=== PATIENT | male | born 1985 | race Caucasian/White ===

== ENCOUNTER 2021-10-28 16:57 | Emergency (ER) | payer OTHER, SELFPAY ==
--- NOTE | ~2021-10-28 | CT_ITS ---
EXAMINATION: CT abdomen pelvis w con INDICATION: Abdominal pain and nausea TECHNIQUE: Computed tomographic images of the abdomen and pelvis were obtained after the administrati on of 100 cc of Omnipaque 350 intravenous contrast. The dose-length product (DLP) was 515.12 mGy-cm. Automated exposure control and iterative reconstruction technique were employed. COMPARISON: None available FINDINGS: Minimal dependent atelectasis is present in the lung bases. The heart size is normal. The l iver, spleen, pancreas, gallbladder, and adrenal glands are normal. The kidneys are unremarkable. No pathologically enlarged abdominal or pelvic lymph nodes are identified. There is no free intraperiton eal gas or evidence of bowel obstruction. The appendix is normal. There is a tiny umbilical hernia c ontaining fat. IMPRESSION: 1. No CT correlate for the patient's symptoms. Reviewed, dictated and finalized at location F. HROOM MONITOR
[2021-10-28 17:52] VITALS: BP 169/86; PULSE 76; RESP 16; TEMP 36.2; O2SAT 100
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
[2021-10-28 20:00] LABS: Basophils Absolute Auto 0.1 K/mm3 (0.0-0.1); Basophils Percent Auto 0.6 % (0.2-1.2); Eosinophils Absolute Auto 0.1 K/mm3 (0-0.3); Hematocrit 45.6 % (42.0-52.0); Hemoglobin 16.1 g/dL (14.0-18.0); Immature Granulocyte Absolute 0.02 K/mm3 (0.00-0.031); Immature Granulocyte Percent A 0.3 % (0-0.5); Lymphocytes Absolute Auto 2.35 K/mm3 (0.9-3.2); Lymphocytes Percent Auto 29.7 % (18.3-44.2); Mean Corpuscular HGB Conc 35.3 g/dl (32-36); Mean Corpuscular Hemoglobin 31.3 pg (26-34); Mean Corpuscular Volume 88.5 fl (80-100); Mean Platelet Volume 8.8 fl (7.4-10.4); Monocytes Absolute Auto 0.5 K/mm3 (0.1-0.6); Monocytes Percent Auto 5.9 % (2.6-8.5); Neutrophils Absolute Auto 4.9 K/mm3 (1.3-6.7); Neutrophils Percent Auto 62.5 % (45.5-73.1); Platelet Count Result 197 k/mm3 (150-375); Red Blood Count 5.15 M/mm3 (4.6-6.20); Red Cell Distribution Width 12.5 % (11.5-14.5); White Blood Count 7.9 K/mm3 (4.5-10.0)
[2021-10-28] MEDS: SODIUM CHLORIDE 0.9% IV 1,000 ML 999 ML IV CONT (20:00)
[2021-10-28] MEDS: Please add drug allergy info to patient profile. 1 EACH XX (20:01)
[2021-10-28 20:03] LABS: Add Urine Microscopic? YES; Appearance Urine Clear (Clear); Bilirubin Urine Negative (Negative); Blood Urine Negative (Negative); Color Urine Yellow (Yellow); Glucose Urine UA Negative (Negative); Ketones Urine Trace mg/dL (Negative); Leukocyte Esterase Ur Negative LEU/UL (Negative); Mucus Urine Rare /lpf; Nitrate Urine Negative (Negative); Protein Urine Negative (Negative); RBC Urine 0-2 /hpf (0-2); Specific Grav Ur 1.013 (1.001-1.035); Urobilinogen Urine Negative mg/dL (<2.0); WBC Urine 0-3 /hpf
[2021-10-28 20:11] LABS: Alanine Aminotransferase 38 U/L (4-50); Albumin Level 4.7 g/dL (3.5-5.1); Alkaline Phosphatase 56 U/L (38-126); Anion Gap 13 mmol/L (8-16); Aspartate Amino Transferase 32 U/L (17-59); Bilirubin,Total 3.7 mg/dL (0.2-1.3); Blood Urea Nitrogen 10 mg/dL (9-20); Calcium 9.7 mg/dL (8.4-10.2); Carbon Dioxide 25 mmol/L (22-30); Chloride 102 mmol/L (98-107); Estimated CRCL calculation 106 ml/min; Estimated Glomerular Filt Rate > 60; Glucose 96 mg/dL (65-110); Lipase 50 U/L (23-300); Potassium 3.6 mmol/L (3.4-5.0); Sodium 140 mmol/L (137-145)
[2021-10-28 22:22] VITALS: BP 141/91; PULSE 90; RESP 18; O2SAT 97
== END 2021-10-28 22:24 | disposition home or self-care (01) ==
PROVIDERS: Emergency Provider Emergency Medicine
DX: R10.13 Epigastric pain (principal); E80.6 Other disorders of bilirubin metabolism
CPT/HCPCS: 36415; 74177; 80053; 81001; 83690; 85025; 96360; 96361; 99284; J7030; Q9967

== ENCOUNTER 2021-11-19 14:24 | Outpatient (CLI) | payer OTHER, SELFPAY ==
[2021-11-19 14:56] LABS: Alanine Aminotransferase 25 U/L (4-50); Albumin Level 4.8 g/dL (3.5-5.1); Alkaline Phosphatase 48 U/L (38-126); Aspartate Amino Transferase 25 U/L (17-59); Bilirubin Indirect 2.2 mg/dL (0-1.1); Bilirubin,Total 2.2 mg/dL (0.2-1.3)
== END 2021-11-19 14:25 | disposition home or self-care (01) ==
LOC: ANHLAB 14:26
PROVIDERS: Visit Provider Internal Medicine Gastroenterology
DX: E80.6 Other disorders of bilirubin metabolism (principal); R10.10 Upper abdominal pain, unspecified
CPT/HCPCS: 36415; 80076

== ENCOUNTER 2021-12-07 00:27 | Day surgery (SDC) | payer OTHER, SELFPAY ==
[2021-11-24 13:48] VITALS: BMI 31.3
--- NOTE | 2021-12-07 07:33 | P.PNAN_ITS ---
Anes - Initial Pre Proc Eval Procedure: Operation Date: 12/07/21 08:30 Proposed Procedures p Esophagogastroduodenoscopy - Pierre Green MD Date/Time: 12/07/21 07:33 Surgeon: Pierre Green MD Pre Op Diagnosis: epigastric pain Patient Data Age: 36 Gender: M Height: 1.78 m Weight: 99 kg Allergies Allergy/AdvReac Type Severity Reaction Status Date / Time No Known Allergies Allergy Verified 12/07/21 07:45 Home Medications Medication Instructions Recorded Confirmed Type pantoprazole [Protonix] 40 mg PO DAILY #30 ea 10/28/21 12/07/21 Rx Patient hx anesthesia problems: none Family hx anesthesia problems: none Results Review: All pre-operative results and documents have been reviewed as part of the pre-operative evaluation. [facility] Past Medical History Medical History (Updated 12/07/21 @ 07:33 by Thien Dinh DO) Dyspepsia GERD (gastroesophageal reflux disease) Social History Social History (Updated 11/19/21 @ 13:42 by Amber Bradley [facility]) Smoking status: Current every day smoker Tobacco type: cigarettes Alcohol intake: never Alcohol use details: social Substance use: never Substance use type: does not use Living arrangements: with family Spiritual care concerns: No Anes - Eval Final PreProcedure Day of Procedure 12/07/21 07:33 Patient weight: obese Heart: regular rate and rhythm Lungs: clear to auscultation and normal air movement Airway: Mallampati scale class II Neurological: alert and oriented Last oral intake: >/= 8 hours ASA classification: II Emergent: no Anesthetic plan: proceed Anesthesia type and monitoring: general GIVS and standard monitoring Results Review: All pre-operative results and documents have been reviewed as part of the pre-operative evaluation. Informed Consent: The patient's anesthetic plan and its attendant risks and benefits were discussed with the patient/family/POA. Questions were solicited and answers provided to the satisfaction of the patient/family/POA.
[2021-12-07 07:46] VITALS: BP 133/84; PULSE 76; RESP 18; TEMP 36.6; O2SAT 100
[2021-12-07] MEDS: LACTATED RINGERS 1,000 ML 150 ML IV CONT (07:48)
--- NOTE | 2021-12-07 08:22 | WPDHPUPDATE1 ---
History and Physical Update Update Date/Time: 12/07/21 08:22 History and Physical has been reviewed, including an updated exam of the patient. There are NO changes in the patient's condition. Risks, benefits, and alternatives have been discussed and questions answered. Patient agrees to proceed with procedure.
[2021-12-07] MEDS: BENZOCAINE (*SP) 60 ML SPRAY CAN (HURRICAINE) 1 SPRAY MUCOUS MEM (08:23)
[2021-12-07 08:34] VITALS: BP 134/82; PULSE 83; RESP 21; O2SAT 98
[2021-12-07 08:44] VITALS: BP 130/104; PULSE 83; RESP 20; O2SAT 98
[2021-12-07 08:54] VITALS: BP 137/86; PULSE 73; RESP 18; O2SAT 100
== END 2021-12-07 09:15 | disposition home or self-care (01) ==
PROVIDERS: Visit Provider Internal Medicine Gastroenterology
PROC: 0DJ08ZZ Inspection of Upper Intestinal Tract, Via Natural or Artificial Opening Endoscopic (ICD-10-PCS; CPT 43235; principal; 2021-12-07 08:30)
DX: K29.70 Gastritis, unspecified, without bleeding (principal); F17.210 Nicotine dependence, cigarettes, uncomplicated; E66.9 Obesity, unspecified; Z68.31 Body mass index [BMI] 31.0-31.9, adult
CPT/HCPCS: 43239; 88305; J7120

== ENCOUNTER 2022-07-22 08:12 | Outpatient (CLI) | payer OTHER, SELFPAY ==
[2022-07-22 18:56] LABS: Basophils Absolute Auto 0.1 K/mm3 (0.0-0.1); Basophils Percent Auto 0.9 % (0.2-1.2); Eosinophils Absolute Auto 0.2 K/mm3 (0-0.3); Eosinophils Percent Auto 3.5 % (0-4.4); Hematocrit 46.2 % (42.0-52.0); Hemoglobin 15.9 g/dL (14.0-18.0); Immature Granulocyte Absolute 0.01 K/mm3 (0.00-0.031); Immature Granulocyte Percent A 0.2 % (0-0.5); Lymphocytes Absolute Auto 1.96 K/mm3 (0.9-3.2); Mean Corpuscular HGB Conc 34.4 g/dl (32-36); Mean Corpuscular Hemoglobin 31.1 pg (26-34); Mean Corpuscular Volume 90.4 fl (80-100); Mean Platelet Volume 9.5 fl (7.4-10.4); Monocytes Absolute Auto 0.4 K/mm3 (0.1-0.6); Monocytes Percent Auto 6.8 % (2.6-8.5); Neutrophils Absolute Auto 3.6 K/mm3 (1.3-6.7); Neutrophils Percent Auto 57.6 % (45.5-73.1); Platelet Count Result 237 k/mm3 (150-375); Red Blood Count 5.11 M/mm3 (4.6-6.20); Red Cell Distribution Width 13.3 % (11.5-14.5); White Blood Count 6.3 K/mm3 (4.5-10.0)
[2022-07-22 19:57] LABS: Alanine Aminotransferase 34 U/L (6-50); Albumin Level 4.1 g/dL (3.5-5.1); Alkaline Phosphatase 49 U/L (38-126); Anion Gap 9 mmol/L (8-16); Aspartate Amino Transferase 41 U/L (17-59); Bilirubin,Total 1.5 mg/dL (0.2-1.3); Blood Urea Nitrogen 13 mg/dL (9-20); Calcium 8.9 mg/dL (8.4-10.2); Carbon Dioxide 29 mmol/L (22-30); Chloride 101 mmol/L (98-107); Cholesterol 183 mg/dL (0-200); Estimated Glomerular Filt Rate > 60; Glucose 105 mg/dL (65-110); HDL Direct 43 mg/dL; Sodium 139 mmol/L (137-145); Triglycerides 107 mg/dL (<150)
[2022-07-22 20:07] LABS: LDL Cholesterol Direct 120 mg/dL
== END 2022-07-22 08:13 | disposition home or self-care (01) ==
PROVIDERS: PCP Internal Medicine; Visit Provider Nurse Practitioner
DX: Z13.220 Encounter for screening for lipoid disorders (principal); F32.A Depression, unspecified; F41.9 Anxiety disorder, unspecified
CPT/HCPCS: 36415; 80053; 80061; 84443; 85025

== ENCOUNTER 2022-08-30 11:47 | Outpatient (CLI) | payer OTHER, SELFPAY ==
[2022-08-30 18:58] LABS: Hematocrit 43.6 % (42.0-52.0); Mean Corpuscular HGB Conc 34.4 g/dl (32-36); Mean Corpuscular Hemoglobin 31.9 pg (26-34); Mean Corpuscular Volume 92.8 fl (80-100); Mean Platelet Volume 9.8 fl (7.4-10.4); Platelet Count Result 213 k/mm3 (150-375); Red Cell Distribution Width 13.3 % (11.5-14.5); White Blood Count 7.1 K/mm3 (4.5-10.0)
[2022-08-30 19:15] LABS: Appearance Urine Clear (Clear); Bilirubin Urine Negative (Negative); Blood Urine Trace-intact (Negative); Color Urine Yellow (Yellow); Glucose Urine UA Negative (Negative); Ketones Urine Negative (Negative); Leukocyte Esterase Ur Negative LEU/UL (NEGATIVE); Nitrate Urine Negative (Negative); Protein Urine Negative (Negative); Specific Grav Ur 1.015 (1.001-1.035); Urobilinogen Urine 0.2 mg/dL (<2.0)
[2022-08-30 19:17] LABS: RBC Urine 0-2 /hpf (0-2); Squamous Epithelial Cell Urine Rare /hpf (Few)
[2022-08-30 19:24] LABS: Add Urine Microscopic? YES
[2022-08-30 19:29] LABS: Anion Gap 13 mmol/L (8-16); Blood Urea Nitrogen 14 mg/dL (9-20); Carbon Dioxide 24 mmol/L (22-30); Chloride 103 mmol/L (98-107); Estimated Glomerular Filt Rate > 60; Glucose 103 mg/dL (65-110); Potassium 3.6 mmol/L (3.4-5.0); Sodium 140 mmol/L (137-145)
== END 2022-08-30 11:48 | disposition home or self-care (01) ==
LOC: ANHGOSHLAB 11:48
PROVIDERS: PCP Internal Medicine; Visit Provider Internal Medicine
DX: R30.0 Dysuria (principal); R31.9 Hematuria, unspecified
CPT/HCPCS: 36415; 80048; 81001; 85027; 87086

== ENCOUNTER 2023-08-01 14:51 | Outpatient (CLI) | payer OTHER, SELFPAY ==
[2023-08-01 19:32] LABS: Basophils Absolute Auto 0.1 K/mm3 (0.0-0.1); Basophils Percent Auto 0.8 % (0.2-1.2); Eosinophils Absolute Auto 0.3 K/mm3 (0-0.3); Eosinophils Percent Auto 3.7 % (0-4.4); Hematocrit 43.2 % (42.0-52.0); Immature Granulocyte Absolute 0.01 K/mm3 (0.00-0.031); Immature Granulocyte Percent A 0.1 % (0-0.5); Lymphocytes Absolute Auto 2.12 K/mm3 (0.9-3.2); Lymphocytes Percent Auto 29.9 % (18.3-44.2); Mean Corpuscular HGB Conc 34.7 g/dl (32-36); Mean Corpuscular Hemoglobin 31.1 pg (26-34); Mean Corpuscular Volume 89.6 fl (80-100); Mean Platelet Volume 9.7 fl (7.4-10.4); Monocytes Absolute Auto 0.5 K/mm3 (0.1-0.6); Monocytes Percent Auto 6.3 % (2.6-8.5); Neutrophils Absolute Auto 4.2 K/mm3 (1.3-6.7); Neutrophils Percent Auto 59.2 % (45.5-73.1); Platelet Count Result 226 k/mm3 (150-375); Red Blood Count 4.82 M/mm3 (4.6-6.20); Red Cell Distribution Width 12.5 % (11.5-14.5); White Blood Count 7.1 K/mm3 (4.5-10.0)
[2023-08-01 19:45] LABS: Alanine Aminotransferase 42 U/L (6-50); Albumin Level 4.6 g/dL (3.5-5.1); Alkaline Phosphatase 48 U/L (38-126); Anion Gap 7 mmol/L (8-16); Aspartate Amino Transferase 44 U/L (17-59); Bilirubin,Total 2.2 mg/dL (0.2-1.3); Blood Urea Nitrogen 14 mg/dL (9-20); Calcium 9.5 mg/dL (8.4-10.2); Carbon Dioxide 28 mmol/L (22-30); Chloride 105 mmol/L (98-107); Cholesterol 193 mg/dL (0-200); Estimated Glomerular Filt Rate > 60; Glucose 91 mg/dL (65-110); HDL Direct 45 mg/dL; Potassium 3.7 mmol/L (3.4-5.0); Sodium 140 mmol/L (137-145); Triglycerides 81 mg/dL (<150)
[2023-08-01 20:01] LABS: LDL Cholesterol Direct 119 mg/dL
== END 2023-08-01 14:52 | disposition home or self-care (01) ==
LOC: ANHGOSHLAB 14:53
PROVIDERS: PCP Internal Medicine; Visit Provider Nurse Practitioner
DX: Z13.220 Encounter for screening for lipoid disorders (principal); R41.840 Attention and concentration deficit; F41.9 Anxiety disorder, unspecified; F32.A Depression, unspecified
CPT/HCPCS: 36415; 80053; 80061; 82607; 84443; 85025

== ENCOUNTER 2024-01-31 12:44 | Outpatient (CLI) | payer OTHER, SELFPAY ==
--- NOTE | 2024-01-31 14:30 | NEURO_ITS ---
Impression: # Complains of hand pain. Non-diabetic. # Evolving right Carpal Tunnel Syndrome. # No ulnar neuropathy. # Normal needle/EMG. Nerve Conduction Studies Anti Sensory Summary Table Stim Site NR Peak (ms) P-T Amp (?V) Site1 Site2 Delta-P (ms) Dist (cm) Levy (m/s) Right Median Anti Sensory (2-3nd Digit) Wrist 3.6 52.7 Wrist 2-3nd Digit 3.6 14.0 39 Wrist 3.7 54.2 Wrist 2-3nd Digit 3.6 14.0 39 Right Radial Anti Sensory (Base 1st Digit) Wrist 2.0 30.6 Wrist Base 1st Digit 2.0 0.0 Right Ulnar Anti Sensory (5th Digit) Wrist 1.8 18.3 Wrist 5th Digit 1.8 14.0 78 Motor Summary Table Stim Site NR Onset (ms) O-P Amp (mV) Site1 Site2 Delta-0 (ms) Dist (cm) Levy (m/s) Right Median Motor (Abd Poll Brev) Wrist 3.5 3.3 Elbow Wrist 4.9 30.0 61 Elbow 8.4 5.6 Right Ulnar Motor (Abd Dig Minimi) Wrist 2.2 5.8 A Elbow Wrist 5.2 31.0 60 A Elbow 7.4 4.8 F Wave Studies NR F-Lat (ms) L-R F-Lat (ms) Right Median (Mrkrs) (Abd Poll Brev) 29.18 Right Ulnar (Mrkrs) (Abd Dig Min) 29.42 EMG Side Muscle Nerve Root Ins Act Fibs Amp Dur Recrt Comment Right 1stDorInt Ulnar C8-T1 Nml Nml Nml Nml Nml Right Ext Indicis Radial (Post Int) C7-8 Nml Nml Nml Nml Nml Right Ext Digitorum Radial (Post Int) C7-8 Nml Nml Nml Nml Nml Right BrachioRad Radial C5-6 Nml Nml Nml Nml Nml Right PronatorTeres Median C6-7 Nml Nml Nml Nml Nml Right Abd Poll Brev Median C8-T1 Nml Nml Nml Nml Nml Right ABD Dig Min Ulnar C8-T1 Nml Nml Nml Nml Nml MTDD
== END 2024-01-31 12:45 | disposition home or self-care (01) ==
PROVIDERS: PCP Internal Medicine; Visit Provider Nurse Practitioner
DX: G56.01 Carpal tunnel syndrome, right upper limb (principal)
CPT/HCPCS: 95886; 95909

== ENCOUNTER 2024-03-28 14:36 | Outpatient (CLI) | payer OTHER, SELFPAY ==
[2024-03-28 19:31] LABS: Basophils Absolute Auto 0.1 K/mm3 (0.0-0.1); Eosinophils Absolute Auto 1.3 K/mm3 (0-0.3); Eosinophils Percent Auto 14.2 % (0-4.4); Hematocrit 45.9 % (42.0-52.0); Hemoglobin 15.5 g/dL (14.0-18.0); Immature Granulocyte Absolute 0.03 K/mm3 (0.00-0.031); Immature Granulocyte Percent A 0.3 % (0-0.5); Lymphocytes Absolute Auto 1.68 K/mm3 (0.9-3.2); Lymphocytes Percent Auto 17.9 % (18.3-44.2); Mean Corpuscular HGB Conc 33.8 g/dl (32-36); Mean Corpuscular Hemoglobin 30.8 pg (26-34); Mean Corpuscular Volume 91.3 fl (80-100); Mean Platelet Volume 9.8 fl (7.4-10.4); Monocytes Absolute Auto 0.5 K/mm3 (0.1-0.6); Neutrophils Absolute Auto 5.8 K/mm3 (1.3-6.7); Neutrophils Percent Auto 61.6 % (45.5-73.1); Platelet Count Result 269 k/mm3 (150-375); Red Blood Count 5.03 M/mm3 (4.6-6.20); Red Cell Distribution Width 12.9 % (11.5-14.5); White Blood Count 9.4 K/mm3 (4.5-10.0)
[2024-03-28 19:57] LABS: Appearance Urine Clear (Clear); Bilirubin Urine Negative (Negative); Blood Urine Negative (Negative); Color Urine Yellow (Yellow); Glucose Urine UA Negative (Negative); Ketones Urine Negative (Negative); Leukocyte Esterase Ur Negative LEU/UL (Negative); Nitrate Urine Negative (Negative); Protein Urine Negative (Negative); Specific Grav Ur 1.019 (1.001-1.035); Urobilinogen Urine 0.2 mg/dL (<2.0)
[2024-03-28 19:59] LABS: Add Urine Microscopic? NO
[2024-03-28 20:02] LABS: Erythrocyte Sedimentation Rate 10 mm/hr (0-20)
[2024-03-28 20:48] LABS: Alanine Aminotransferase 41 U/L (6-50); Albumin Level 4.7 g/dL (3.5-5.1); Alkaline Phosphatase 60 U/L (38-126); Anion Gap 6 mmol/L (4-12); Aspartate Amino Transferase 44 U/L (17-59); Bilirubin,Total 1.3 mg/dL (0.2-1.3); Blood Urea Nitrogen 14 mg/dL (9-20); CRP < 0.5 mg/dL (<1.0); Carbon Dioxide 30 mmol/L (22-30); Chloride 105 mmol/L (98-107); Estimated Glomerular Filt Rate > 60; Glucose 69 mg/dL (65-110); Sodium 141 mmol/L (137-145)
[2024-03-28 21:07] LABS: HIV 1/2 Ab P24 Ag Result Negative (Negative)
[2024-04-02 14:32] LABS: Thyroid Peroxidase Antibodies <1 IU/mL (<9)
== END 2024-03-28 14:37 | disposition home or self-care (01) ==
LOC: ANHGOSHLAB 14:37
PROVIDERS: PCP Internal Medicine; Visit Provider Clinical Nurse Specialist
DX: R61 Generalized hyperhidrosis (principal); E80.4 Gilbert syndrome; F32.A Depression, unspecified; F41.9 Anxiety disorder, unspecified
CPT/HCPCS: 36415; 80053; 81003; 82607; 84443; 85025; 85652; 86140; 86376; 86703; G0432

== ENCOUNTER 2024-05-14 22:26 | Emergency (ER) | payer OTHER, SELFPAY ==
[2024-05-14 22:34] VITALS: BP 182/102; PULSE 112; RESP 15; TEMP 36.5; O2SAT 100
[2024-05-14 23:16] LABS: Basophils Absolute Auto 0.1 K/mm3 (0.0-0.1); Basophils Percent Auto 0.8 % (0.2-1.2); Eosinophils Absolute Auto 0.1 K/mm3 (0-0.3); Eosinophils Percent Auto 0.8 % (0-4.4); Hematocrit 43.1 % (42.0-52.0); Hemoglobin 15.3 g/dL (14.0-18.0); Immature Granulocyte Absolute 0.01 K/mm3 (0.00-0.031); Immature Granulocyte Percent A 0.1 % (0-0.5); Lymphocytes Absolute Auto 1.81 K/mm3 (0.9-3.2); Lymphocytes Percent Auto 23.9 % (18.3-44.2); Mean Corpuscular HGB Conc 35.5 g/dl (32-36); Mean Corpuscular Hemoglobin 31.7 pg (26-34); Mean Corpuscular Volume 89.4 fl (80-100); Mean Platelet Volume 8.9 fl (7.4-10.4); Monocytes Absolute Auto 0.6 K/mm3 (0.1-0.6); Monocytes Percent Auto 7.4 % (2.6-8.5); Neutrophils Absolute Auto 5.1 K/mm3 (1.3-6.7); Platelet Count Result 232 k/mm3 (150-375); Red Blood Count 4.82 M/mm3 (4.6-6.20); Red Cell Distribution Width 12.6 % (11.5-14.5); White Blood Count 7.6 K/mm3 (4.5-10.0)
[2024-05-14 23:33] LABS: Alanine Aminotransferase 29 U/L (6-50); Albumin Level 4.8 g/dL (3.5-5.1); Alkaline Phosphatase 50 U/L (38-126); Anion Gap 11 mmol/L (4-12); Aspartate Amino Transferase 30 U/L (17-59); Blood Urea Nitrogen 17 mg/dL (9-20); Calcium 9.6 mg/dL (8.4-10.2); Carbon Dioxide 24 mmol/L (22-30); Chloride 105 mmol/L (98-107); Estimated CRCL calculation 98 ml/min; Estimated Glomerular Filt Rate > 60; Ethanol < 10 mg/dL (<10); Glucose 113 mg/dL (65-110); Potassium 3.5 mmol/L (3.4-5.0); Sodium 140 mmol/L (137-145)
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
--- NOTE | 2024-05-15 01:24 | PC.NURSE ---
This RN attempted to perform COVID swab on pt when he refsued and states Im not sick why do I need a covid test . This Rn continued to to try and explain this is our protocol for crisis and the hospital. Continued to explain if we were needed to get him sent to psychiatric hospital he would need a covid test done. Pt continues to refuse. Charge Fabi and PERRY Manley notified. Both attempted to excplain and talk to pt and pt keeps refusing. Pt being uncooperative and security by door.
[2024-05-15 01:33] LABS: Amphetamine Screen Urine Negative (Negative); Appearance Urine Clear (Clear); Bacteria Urine None Seen /hpf; Barbiturate Screen Urine Negative (Negative); Benzodiazepines Screen Urine Negative (Negative); Bilirubin Urine Negative (Negative); Blood Urine Negative (Negative); Cannabinoid Screen Urine Positive (Negative); Cocaine Screen Urine Negative (Negative); Color Urine Yellow (Yellow); Glucose Urine UA Negative (Negative); Ketones Urine Negative (Negative); Leukocyte Esterase Ur Trace LEU/UL (Negative); Methadone Screen Urine Negative (Negative); Need Manual Microscopic Reviewed; Nitrate Urine Negative (Negative); Non Pathogenic Casts 0-2; Opiate Screen Urine Negative (Negative); Phencyclidine Screen Urine Negative (Negative); Protein Urine Negative (Negative); RBC Urine 0-2 /hpf (0-2); Specific Grav Ur 1.004 (1.001-1.035); Squamous Epithelial Cell Urine None Seen /hpf (Few); Urobilinogen Urine 0.2 mg/dL (<2.0); WBC Urine 0-5 /hpf (0-3); pH Urine 6.5 (5.0-9.0)
[2024-05-15 01:38] LABS: Add Urine Microscopic? YES
--- NOTE | 2024-05-15 04:57 | PC.NURSE ---
crisis was called at 0415 for evaluation. crisis states they will come and evaluate pt without having a covid swab done but if he is to be placed he will need a covid swab performed.
--- NOTE | 2024-05-15 07:45 | PC.NURSE ---
pt waved this RN down and requesting to know what is going on. this RN explained to pt that we are working on placement to a psychiatric facility for him under involuntary admission. explained to pt that provider felt that pt was deemed appropriate for admission due to suicidal ideation and access to firearms at home. pt requesting to speak with the provider. provider made aware and in room speaking with pt.
--- NOTE | 2024-05-15 08:38 | PC.NURSE ---
ordered safety breakfast tray.
--- NOTE | 2024-05-15 09:09 | PC.NURSE ---
pt requesting to make a phone call to his job to let them know that he will not be there. pt states he does not know the number. allowed pt to make a phone call using his phone and then locked phone back up with rest of belongings when finished. offered pt home medications. pt refusing. offered breakfast tray. pt refusing. pt asking if he can just drive himself to facility. told pt we are not able to do that and that he will need to be transferred by ambulance. pt requesting to see our policy on the care of psychiatric patients. this RN stated I had no problem doing so. while going to print out policy pt called out requesting to speak with construction area manager. construction area manager in room speaking with pt at this time.
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
[2024-05-15] MEDS: buPROPion HCL XL (24 HR) 150 MG TABCR PO (10:24)
[2024-05-15] MEDS: DULoxetine HCL 60 MG CAPSULE.DR PO (10:25)
[2024-05-15 11:10] LABS: Influenza A QL RT-PCR Negative (Negative); Influenza B QL RT-PCR Negative (Negative); RSV RNA, RT-PCR Negative (Negative); SARS-CoV-2 RNA PCR Negative (Negative)
--- NOTE | 2024-05-15 11:25 | PC.NURSE ---
pt escorted by security for shower. pt now back in room resting in stretcher. no request at this time.
--- NOTE | 2024-05-15 11:30 | PC.NURSE ---
called crisis, left message regarding negative Covid test. call back number given.
--- NOTE | 2024-05-15 11:54 | PC.NURSE ---
Marley with crisis called back and states she faxed pt's chart to [facility] and [facility]. both places are full at this time, but will possibly have some discharges today.
--- NOTE | 2024-05-15 16:51 | PC.NURSE ---
called crisis to see if there were any updates. they state Amelia is faxing patients chart to other facilities for placement. will call back for any updates.
[2024-05-15 17:30] VITALS: BP 148/96; PULSE 76; RESP 15; TEMP 36.6; O2SAT 99
--- NOTE | 2024-05-15 18:35 | PC.NURSE ---
Amelia with crisis called. faxed chart to [facility] in [place] and [facility]. pt is on waitlist for [facility] in both [place] and [place].
--- NOTE | 2024-05-15 19:27 | PC.NURSE ---
pt has been accepted to [facility]. accepting physician is Dr. Solano. number to call report is [phone].
== END 2024-05-15 23:50 ==
PROVIDERS: Emergency Medicine; Emergency Provider Emergency Medicine; PCP Internal Medicine
DX: R45.851 Suicidal ideations (principal); R45.1 Restlessness and agitation; Z91.51 Personal history of suicidal behavior; Z11.52 Encounter for screening for COVID-19; F41.9 Anxiety disorder, unspecified; F32.A Depression, unspecified; K21.9 Gastro-esophageal reflux disease without esophagitis; E80.4 Gilbert syndrome; Z87.891 Personal history of nicotine dependence
CPT/HCPCS: 36415; 80053; 80307; 81001; 84443; 85025; 87637; 99285; A9270